=== PATIENT | female | born 1995 | race Caucasian/White ===

== ENCOUNTER 2016-07-24 13:37 | Outpatient (CLI) | payer BC ==
[~2016-07-24] VITALS: Ht 160 cm; Wt 83.7 kg
[2016-07-24 13:49] VITALS: BP 140/68; Ht 160 cm; Wt 83.7 kg
--- NOTE | 2016-07-24 14:41 | TRIAGE ---
OB Triage Datetime Report Generated by CPN: 07/24/2016 14:40 Datetime: 07/24/2016 14:26 Labor Evaluation Frequency: 1-5 Monitor Mode: External Duration (sec)2399: 30-60 Pattern: Normal: <= 5 Contractions in 10 Minutes Membrane Status: Intact Datetime: 07/24/2016 14:25 Vaginal Exam Dilatation (cms): 0.0 Effacement (%): 50 Station: -2 Exam By: Natalia SHELLEY Datetime: 07/24/2016 13:53 Stage of : OB Triage Assessment Type: Triage Maternal Assessment Level of Consciousness: Fully Conscious DTR's/Clonus: DTRs 2+; No Clonus Headache: Denies Blurred Vision: No Respiratory Effort: Unlabored; Regular Rhythm; Equal Expansion Breath Sounds, Left: Clear and Equal Breath Sounds, Right: Clear and Equal Nausea/Vomiting: Denies RUQ Epigastric Pain: Denies Lower Extremities Edema: None Degree: None Upper Extremities Edema: None Degree: None Facial Edema: None Temperature Route: Oral Fall Risk Assessment History of Falling: (0) No Secondary Diagnosis: (0) No Ambulatory Aid: (0) Bedrest/Nurse Assist IV Therapy: (0) No Gait: (0) Normal/Bedrest/Immobile Mental Status: (0) Oriented to Own Ability Fall Score: 0 Fall Risk Score Definition: No Risk: No action required Labor Evaluation Frequency: X1 Monitor Mode: External Duration (sec)2399: 50-60 Pattern: Normal: <= 5 Contractions in 10 Minutes Resting Tone [place]: Relaxed Heart Rate FHR Baseline Rate: 155 Monitor Mode: External US Variability: Moderate 6-25 bpm Category: Category I Pain Assessment Pain Scale: 6 Pain Presence: Intermittent Pain Type: Ache Pain Location: Back Pain Goal: 0 Pain Relief Measures: Comfort Measures Datetime: 07/24/2016 13:52 EGA: 38.5 Datetime: 07/24/2016 13:51 Time of Arrival: 07/24/2016 13:31 Arrived By: Ambulatory Arrived From: Home Chief Complaint: BACK PAIN Movement: Present Contractions: Irregular Rupture of Membranes: Denies Vaginal Bleeding: None Vaginal Discharge: Denies Recent Sexual Intercouse: Denies Abdominal Trauma: Not Applicable Patient Complaints: Back Pain Time Provider Notified: 07/24/2016 14:30 Provider Notified: DR. SHI Initial Plan: Cristino
--- NOTE | 2016-07-24 15:24 | PN ---
DATE: 07/24/2016 The patient is a 21-year-old 38-1/2 weeks with ___ uterine contractions. No vaginal bleeding. Vital signs are normal. Exam within normal limits. Os is closed. Category 1 tracing. ASSESSMENT: Uterine at 38-1/2 weeks. False labor. PLAN: Discharged home. Follow up in one week or p.r.n. Dictated By: ALTAGRACIA SHI MD /NTS Conf#: [id number] DID#: [id number]
== END 2016-07-24 14:52 | disposition home or self-care (01) ==
LOC: L-D 13:37 → OBT 13:37
PROVIDERS: ATTEND Obstetrics & Gynecology
DX: O47.1 False labor at or after 37 completed weeks of gestation (principal); Z3A.38 38 weeks gestation of pregnancy
CPT/HCPCS: G0463

== ENCOUNTER 2016-07-30 04:11 | Outpatient (CLI) | payer BC ==
[~2016-07-30] VITALS: Ht 160 cm; Wt 84.2 kg
[2016-07-30 04:19] VITALS: BP 133/67; PULSE 73; RESP 18; Ht 160 cm; Wt 84.2 kg
--- NOTE | 2016-07-30 05:23 | PN ---
Date/Time of Note Date/Time of Note DATE: 07/30/16 TIME: 05:20 OB Subjective Subjective Subjective 21 yo @ 39. 4 wks came w c/o ctx, now lessened OB Objective Objective Objective VS: 133/67, 73, 18, 98.2 Abdomen- gravid, n/t SVE- 1/40/-3 FHT- Cat I Concrete- irreg ctx Abdomen: WNL Cervical Dilatation: 1cm Effacement: 50% Station: -3 Membranes: Intact Accelerations: Accelerations Present Decelerations: No Decelerations Contractions on Admission: >10 Minutes Apart Intensity: Mild OB Assessment/Plan Other Assessment: 21 yo P0 @ 39.4 wks, r/o labor - reassuring status Other plan: d/c home labor precautions DARIAN MYERS MD Jul 30, 2016 05:23
--- NOTE | 2016-07-30 05:37 | TRIAGE ---
OB Triage Datetime Report Generated by CPN: 07/30/2016 05:37 Datetime: 07/30/2016 05:18 Stage of : OB Triage Datetime: 07/30/2016 05:15 Labor Evaluation Frequency: 3-8 Monitor Mode: External Duration (sec)2399: 60-140 Quality: Mild Resting Tone [place]: Relaxed Heart Rate FHR Baseline Rate: 135 Monitor Mode: External US Variability: Moderate 6-25 bpm Accelerations: 15X15 Decelerations: None Category: Category I Datetime: 07/30/2016 05:07 Stage of : OB Triage Datetime: 07/30/2016 04:52 Vaginal Exam Dilatation (cms): 1.0 Effacement (%): 40 Station: -3 Exam By: Cristino MEIER Vaginal Bleeding: None Cervix, Consistency: Firm Cervix, Position: Posterior Presentation 'A': Cephalic Datetime: 07/30/2016 04:23 Assessment Type: Triage Maternal Assessment Level of Consciousness: Fully Conscious DTR's/Clonus: DTRs 1+; No Clonus Headache: Denies Blurred Vision: No Respiratory Effort: Unlabored Breath Sounds, Left: Clear and Equal Breath Sounds, Right: Clear and Equal Nausea/Vomiting: Present (Annotations: 1 EPISODE OF VOMITING AT 0200) RUQ Epigastric Pain: Denies Lower Extremities Edema: Bilateral Lower Extremities Degree: 2+ Upper Extremities Edema: Bilateral Upper Extremities Degree: 1+ Facial Edema: None Fall Risk Assessment History of Falling: (0) No Secondary Diagnosis: (0) No Ambulatory Aid: (0) Bedrest/Nurse Assist IV Therapy: (0) No Gait: (0) Normal/Bedrest/Immobile Mental Status: (0) Oriented to Own Ability Fall Score: 0 Fall Risk Score Definition: No Risk: No action required Datetime: 07/30/2016 04:21 Time of Arrival: 07/30/2016 04:06 EGA: 39.4 Arrived By: Wheelchair Arrived From: Home Chief Complaint: UCs since 99 Movement: Present Contractions: Irregular Time Contractions Began: 07/30/2016 01:00 Contractions: q 15-20 min Rupture of Membranes: Denies Vaginal Discharge: Denies Recent Sexual Intercouse: Denies Abdominal Trauma: Not Applicable Patient Complaints: Contractions; Back Pain Initial Plan: VS, EFM, SVE Datetime: 07/30/2016 04:17 Monitor Mode: External Monitor Mode: External US Datetime: 07/24/2016 13:53 Fall Score: 0 Fall Risk Score Definition: No Risk: No action required Datetime: 07/24/2016 13:52 EGA: 38.5
== END 2016-07-30 05:32 | disposition home or self-care (01) ==
LOC: OBT 04:11 → L-D 04:12 → OBT 05:32
PROVIDERS: ATTEND Obstetrics & Gynecology
DX: O47.1 False labor at or after 37 completed weeks of gestation (principal); Z3A.39 39 weeks gestation of pregnancy
CPT/HCPCS: G0463

== ENCOUNTER 2016-08-01 00:20 | Inpatient (IN) | payer BC ==
[~2016-08-01] VITALS: Ht 160 cm; Wt 83.7 kg
[2016-08-01 00:43] VITALS: BP 139/70; PULSE 72; Ht 160 cm; Wt 83.7 kg
[2016-08-01] MEDS ORDERED: METHYLERGONOVINE 0.2 MG INJ IM PRN ×4 (01:00→17:00)
[2016-08-01] MEDS ORDERED: OXYTOCIN 30 UNITS/LR 500 ML IV SCH ×3 (01:00→03:30)
[2016-08-01] MEDS ORDERED: IBUPROFEN 600 MG TAB PO PRN (01:00)
[2016-08-01] MEDS ORDERED: LACTATED RINGER'S 1,000 ML IV PRN (01:00)
[2016-08-01] MEDS ORDERED: OXYTOCIN 30 UNITS/LR 500 ML IV PRN ×4 (01:00→17:00)
[2016-08-01] MEDS ORDERED: BUTORPHANOL 2 MG INJ IV PRN (01:00)
[2016-08-01] MEDS ORDERED: CARBOPROST 250 MCG INJ IM PRN ×4 (01:00→17:00)
[2016-08-01] MEDS ORDERED: ACETAMINOPHEN/CODEINE #3 TAB PO PRN ×3 (01:00→17:00)
[2016-08-01] MEDS ORDERED: LIDOCAINE 1% (MPF) 30 ML INJ INJ PRN (01:00)
[2016-08-01] MEDS ORDERED: AMPICILLIN 2 GM/NS (PMX) 100 ML IV ONE (01:00)
[2016-08-01] MEDS ORDERED: MISOPROSTOL 200 MCG TAB PR PRN ×4 (01:00→17:00)
[2016-08-01] MEDS: LACTATED RINGER'S 1,000 ML IV SCH ×4 (01:15→11:10)
--- NOTE | 2016-08-01 01:29 | TRIAGE ---
OB Triage Datetime Report Generated by CPN: 08/01/2016 01:28 Datetime: 08/01/2016 00:40 Assessment Type: Triage Maternal Assessment Level of Consciousness: Fully Conscious Headache: Denies Blurred Vision: No Respiratory Effort: Unlabored; Regular Rhythm; Equal Expansion Nausea/Vomiting: Denies RUQ Epigastric Pain: Denies Facial Edema: None Fall Risk Assessment History of Falling: (0) No Secondary Diagnosis: (0) No Ambulatory Aid: (0) Bedrest/Nurse Assist IV Therapy: (0) No Gait: (0) Normal/Bedrest/Immobile Mental Status: (0) Oriented to Own Ability Fall Score: 0 Fall Risk Score Definition: No Risk: No action required Datetime: 08/01/2016 00:39 Time of Arrival: 08/01/2016 00:19 EGA: 39.6 Arrived By: Wheelchair Arrived From: Home Chief Complaint: UC'S SINCE 2199 Movement: Present Contractions: Regular Time Contractions Began: 07/31/2016 22:00 Contractions: Q2M Rupture of Membranes: Unsure Vaginal Discharge: Present Recent Sexual Intercouse: Denies Abdominal Trauma: Not Applicable Patient Complaints: Contractions Time Provider Notified: 08/01/2016 00:41 Provider Notified: ARDALAN Initial Plan: EFM,SVE, CALL OB Datetime: 08/01/2016 00:31 Vaginal Exam Dilatation (cms): 4.5 Effacement (%): 80 Station: -1 Exam By: HILARY Membrane Status: Intact Vaginal Bleeding: Small Cervix, Consistency: Moderate Cervix, Position: Midposition Presentation 'A': Cephalic Datetime: 07/30/2016 05:30 Vaginal Bleeding: None Vaginal Discharge: Denies Recent Sexual Intercouse: Denies Datetime: 07/30/2016 04:23 Fall Score: 0 Fall Risk Score Definition: No Risk: No action required Datetime: 07/30/2016 04:21 EGA: 39.4 Datetime: 07/24/2016 13:53 Fall Score: 0 Fall Risk Score Definition: No Risk: No action required Datetime: 07/24/2016 13:52 EGA: 38.5
[2016-08-01 01:47] LABS: ADD SCAN DIFF NO
[2016-08-01 01:48] LABS: BASOPHILS % 0.2 % (0.0-2.0); EOSINOPHILS % 0.2 % (0.0-7.0); HEMATOCRIT 31.9 % (37.0-47.0); HEMOGLOBIN 9.9 g/dl (12.0-16.0); LYMPHOCYTES # 1.5 10^3/ul (0.8-2.9); LYMPHOCYTES % 9.5 % (15.0-51.0); MEAN CORPUSCULAR HEMOGLOBIN 24.1 pg (29.0-33.0); MEAN CORPUSCULAR VOLUME 77.8 fl (82.0-101.0); MEAN PLATELET VOLUME 12.1 fl (7.4-10.4); MONOCYTE # 1.3 10^3/ul (0.3-0.9); MONOCYTES % 8.2 % (0.0-11.0); NEUTROPHIL # 12.7 10^3/ul (1.6-7.5); NEUTROPHILS % 81.3 % (39.0-77.0); PLATELET COUNT 252 10^3/UL (140-415); RED CELL DISTRIBUTION WIDTH 14.6 % (11.5-14.5); WHITE BLOOD COUNT 15.6 10^3/ul (4.8-10.8)
[2016-08-01 01:59] LABS: INR 0.88; PROTIME 11.9 Sec (12.2-14.2); PT RATIO 0.9
[2016-08-01 02:00] LABS: PARTIAL THROMBOPLASTIN TIME 27.4 Sec (25.0-35.0)
[2016-08-01] MEDS ORDERED: FENTAnyl 2MCG/ML-ROPIV 0.2% 100 ML ONE ×2 (02:47→10:06)
[2016-08-01 04:07] LABS: BARBITURATES Negative (NEGATIVE); BENZODIAZEPINES Negative (NEGATIVE); CANNABINOIDS Negative (NEGATIVE); COCAINE Negative (NEGATIVE); OPIATES Negative (NEGATIVE)
[2016-08-01] MEDS ORDERED: AMPICILLIN 1 GM/NS (PMX) 50 ML IV SCH (05:00)
[2016-08-01] MEDS ORDERED: NALOXONE (0.4 MG/ML) INJ IV PRN (10:30)
[2016-08-01] MEDS ORDERED: FENTAnyl 2MCG/ML-ROPIV 0.2% 100 ML BAG EPI SCH (10:30)
[2016-08-01] MEDS ORDERED: EPHEDrine SULFATE 50 MG/5 ML SYG IV PRN (10:30)
[2016-08-01] MEDS ORDERED: ONDANSETRON 4 MG INJ IV PRN (10:30)
[2016-08-01] MEDS ORDERED: PRENAT PO (11:18)
--- NOTE | 2016-08-01 13:42 | LDN ---
Date/Time of Note Date/Time of Note DATE: 08/01/16 TIME: 13:39 Delivery Summary Normal spontaneous vaginal delivery of a baby boy from ANA position shoulders delivered without any difficulty rest of the baby's body followed placenta spontaneous expulsion inspected complete patient sustained first-degree perineal laceration repair with 2-0 chromic catgut and 4-0 chromic catgut estimated blood loss 250 cc Placenta Delivered: Spontaneously Meconium: Light Episiotomy?: No Perineal laceration: 1 Laceration repair: First-degree perineal laceration repair with 2-0 chromic catgut and 4-0 chromic catgut Anesthesia type: Epidural Estimated blood loss: 250 Sponge & Needle done & correct: Yes All needle counts correct: Yes Any foreign bodies felt in the: No Problems: Delivery Information Sex Sex: male Apgars 1 Minute: 9 5 Minute: 9 Suctioning Nose & mouth suctioned at sarthak: Yes Delee suction performed: No Umbilical Cord Umbilical cord with: 3 Vessels Cord presentations: nuchal cord Cord Blood was obtained: Yes EDUARDO VALDEZ MD Aug 01, 2016 13:42
--- NOTE | 2016-08-01 13:47 | HP ---
Date/Time of Note Date/Time of Note DATE: 08/01/16 TIME: 13:43 OB - History Hx of Present Free Text/Dictation 21 years old 39 weeks and 3 days admitted in active labor pelvic examination on admission cervical dilatation 6 cm 100% effaced vertex presentation at -1 station patient transferred from triage to labor and delivery room. Estimated Due Date: Aug 02, 2016 : 1 Para: 0 Care: Good Care Obstetrical Complications: None Medical Complications: None Past Family/Social History * Past Medical, Surgical, Family and Obstetric Histories reviewed from chart. Rubella: immune RPR/VDRL: Negative GBS Status: Negative HBsAG: Negative OB Admission Exam Vital Signs Vital Signs Vital Signs Date Time Temp Pulse Resp B/P Pulse Ox O2 Delivery O2 Flow Rate FiO2 08/01/16 00:43 98.1 72 139/70 Room Air Physical Exam HEENT: WNL Heart: Rhythm Normal Lungs: Clear, Equal Extremities: Normal Reflexes: Normal Cervical Dilatation: 6cm Effacement: 100% Station: -1 Membranes: Intact Heart Rate: 130's Decelerations: No Decelerations Varibility: Moderate Contractions on Admission: < 5 Minutes Apart Intensity: Moderate Last 72 hours Lab Results CBC & BMP 08/01/16 01:10 EDUARDO VALDEZ MD Aug 01, 2016 13:47
[2016-08-01 15:00] VITALS: BP 108/56; PULSE 96; RESP 18
[2016-08-01] MEDS ORDERED: LACTATED RINGER'S 1,000 ML IV* SCH ×2 (15:22)
[2016-08-01] MEDS ORDERED: BENZOCAINE 20% 56 ML SPRAY TOP PRN (17:00)
[2016-08-01] MEDS ORDERED: WITCH HAZEL/GLYCERIN PAD PR PRN (17:00)
[2016-08-01] MEDS ORDERED: LANOLIN 7 GM TUBE TOP PRN (17:00)
[2016-08-01] MEDS ORDERED: ACETAMINOPHEN 325 MG TAB PO PRN (17:00)
[2016-08-01] MEDS: IBUPROFEN 600 MG TAB PO SCH (17:25)
[2016-08-01 20:00] VITALS: BP 106/64; PULSE 87; RESP 18
[2016-08-01] MEDS: SENNA/DOCUSATE NA (8.6MG/50MG) TAB PO SCH (21:18)
[2016-08-02] MEDS: IBUPROFEN 600 MG TAB PO SCH ×5 (00:06→23:55)
[2016-08-02 04:15] VITALS: BP 106/53; PULSE 86; RESP 18
[2016-08-02 08:24] LABS: ADD SCAN DIFF NO
[2016-08-02 08:31] LABS: ABNORMAL IP MESSAGE 1; BASOPHIL # 0.1 10^3/ul (0.0-0.1); BASOPHILS % 0.3 % (0.0-2.0); EOSINOPHILS # 0.2 10^3/ul (0.0-0.5); HEMATOCRIT 23.6 % (37.0-47.0); HEMOGLOBIN 7.4 g/dl (12.0-16.0); LYMPHOCYTES % 11.9 % (15.0-51.0); MEAN CORPUSCULAR HEMOGLOBIN 24.5 pg (29.0-33.0); MEAN CORPUSCULAR HGB CONC 31.4 g/dl (32.0-37.0); MEAN CORPUSCULAR VOLUME 78.1 fl (82.0-101.0); MEAN PLATELET VOLUME 11.5 fl (7.4-10.4); MONOCYTE # 1.6 10^3/ul (0.3-0.9); MONOCYTES % 9.2 % (0.0-11.0); NEUTROPHIL # 13.2 10^3/ul (1.6-7.5); NEUTROPHILS % 77.1 % (39.0-77.0); PLATELET COUNT 195 10^3/UL (140-415); RED BLOOD COUNT 3.02 10^6/ul (4.20-5.40); RED CELL DISTRIBUTION WIDTH 15.1 % (11.5-14.5); WHITE BLOOD COUNT 17.1 10^3/ul (4.8-10.8)
[2016-08-02 08:45] VITALS: BP 101/62; PULSE 83; RESP 18
[2016-08-02] MEDS ORDERED: INFLUENZA VIRUS VACCINE 0.5 ML (DISPENSING) IM* ONE (09:00)
--- NOTE | 2016-08-02 09:42 | PN ---
Date/Time of Note Date/Time of Note DATE: 08/02/16 TIME: 09:37 OB Subjective Subjective Subjective day 1 Vital signs as stated with patient is orthostatic feels dizzy when walking hemoglobin 7.4 hematocrit 17.1 abdomen soft uterus firm lochia moderate extremity normal recommended transfusion of 2 units of packed cells pros and cons regarding the transfusion was discussed with the patient including blood reactions and. other complications may arise from transfusion EDUARDO VALDEZ MD Aug 02, 2016 09:42
[2016-08-02] MEDS: SENNA/DOCUSATE NA (8.6MG/50MG) TAB PO SCH ×2 (11:54→20:32)
[2016-08-02 12:23] VITALS: BP 110/54; PULSE 80; RESP 18
[2016-08-02 16:30] VITALS: BP 115/69; RESP 18
[2016-08-02 19:45] VITALS: BP 106/68; PULSE 100; RESP 18
[2016-08-03 03:40] VITALS: BP 107/63; PULSE 90; RESP 16
[2016-08-03] MEDS: IBUPROFEN 600 MG TAB PO SCH ×2 (05:53→12:01)
[2016-08-03 08:30] VITALS: BP 117/59; PULSE 88; RESP 19
[2016-08-03] MEDS ORDERED: DIPHTH/TET/ACEL PERTUSS (ADULT) 0.5 ML VIAL IM* ONE (09:00)
[2016-08-03] MEDS: SENNA/DOCUSATE NA (8.6MG/50MG) TAB PO SCH (09:56)
--- NOTE | 2016-08-03 13:59 | PD.PPDC ---
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
--- NOTE | 2016-08-03 14:02 | DS ---
Date/Time of Note Date/Time of Note DATE: 08/03/16 TIME: 14:01 Obstetrical Discharge Record Final Diagnosis Final Diagnosis: Term delivered Vaginal Delivery Obstetrical Delivery: Spontaneous Condition on Discharge Physical Assessment Last Vitals: day 2 afebrile abdomen soft uterus firm lochia normal extremity normal cox discharged home with follow-up instructions to be seen at the clinic 2 weeks Voiding: Yes Bowel Movement: Yes Fundus: Firm Patient Condition: Good EDUARDO VALDEZ MD Aug 03, 2016 14:02
== END 2016-08-03 16:33 | disposition home or self-care (01) | DRG 775 ==
LOC: OBT 00:20 → L-D 00:26 → OBT 00:45 → L-D 00:45 → PP1 15:26
PROVIDERS: ADMIT Obstetrics & Gynecology; ATTEND Obstetrics & Gynecology
PROC: 10E0XZZ Delivery of Products of Conception, External Approach (ICD-10-PCS; principal; 2016-08-01)
PROC: 0HQ9XZZ Repair Perineum Skin, External Approach (ICD-10-PCS; 2016-08-01)
PROC: 3E00X4Z Introduction of Serum, Toxoid and Vaccine into Skin and Mucous Membranes, External Approach (ICD-10-PCS; 2016-08-03)
DX: O69.81X0 Labor and delivery complicated by cord around neck, without compression, not applicable or unspecified (principal); E66.9 Obesity, unspecified; O99.214 Obesity complicating childbirth; Z68.32 Body mass index [BMI] 32.0-32.9, adult; Z23 Encounter for immunization; O70.0 First degree perineal laceration during delivery; Z3A.39 39 weeks gestation of pregnancy; Z37.0 Single live birth
CPT/HCPCS: 36415; 62319; 80307; 85025; 85610; 85730; 86592; 86900; 86901; 87340; 90686; 90715; 99464; G0463; J2590; J3010; J7120

== ENCOUNTER 2019-01-17 10:48 | Inpatient (IN) | payer BC ==
[~2019-01-17] VITALS: Ht 160 cm; Wt 82.9 kg
[~2019-01-17 10:48] MED LIST: DOCU-144 PO; FER325 PO; IBUP-1542 PO; PRENAT PO
[2019-01-17 11:31] VITALS: BP 114/64; PULSE 96
[2019-01-17 11:32] VITALS: Ht 160 cm; Wt 82.9 kg
[2019-01-17] MEDS ORDERED: CARBOPROST 250 MCG INJ IM PRN (14:30)
[2019-01-17] MEDS ORDERED: METHYLERGONOVINE 0.2 MG INJ IM PRN (14:30)
[2019-01-17] MEDS ORDERED: LIDOCAINE 1% (MPF) 30 ML INJ INJ PRN (14:30)
[2019-01-17] MEDS ORDERED: OXYTOCIN 30 UNITS/LR 500 ML IV PRN (14:30)
[2019-01-17] MEDS ORDERED: MISOPROSTOL 200 MCG TAB PR PRN (14:30)
[2019-01-17] MEDS ORDERED: BUTORPHANOL 2 MG INJ IV PRN (14:30)
[2019-01-17] MEDS ORDERED: IBUPROFEN 600 MG TAB PO PRN (14:30)
[2019-01-17] MEDS ORDERED: OXYTOCIN 30 UNITS/LR 500 ML IV SCH ×3 (14:30)
[2019-01-17] MEDS: LACTATED RINGER'S 1,000 ML IV SCH (17:09)
[2019-01-18] MEDS: LACTATED RINGER'S 1,000 ML IV SCH ×4 (01:27→22:09)
[2019-01-18] MEDS ORDERED: FENTAnyl 2MCG/ML-ROPIV 0.2% 100 ML ONE (08:10)
[2019-01-18] MEDS ORDERED: ONDANSETRON 4 MG INJ IV PRN ×2 (08:30→15:30)
[2019-01-18] MEDS ORDERED: FENTAnyl 2MCG/ML-ROPIV 0.2% 100 ML BAG EPI SCH (08:30)
[2019-01-18] MEDS ORDERED: NALOXONE (0.4 MG/ML) INJ IV PRN (08:30)
[2019-01-18] MEDS ORDERED: NALBUPHINE HCL (10 MG/1 ML) INJ IV PRN (08:30)
[2019-01-18] MEDS ORDERED: DIPHENHYDRAMINE 50 MG INJ IV PRN (08:30)
[2019-01-18] MEDS ORDERED: AMPICILLIN 2 GM/NS (PMX) 100 ML IV STA (09:16)
[2019-01-18] MEDS ORDERED: AMPICILLIN 2 GM/NS (PMX) 100 ML ONE (09:22)
[2019-01-18] MEDS ORDERED: AMPICILLIN 1 GM/NS (PMX) 50 ML IV SCH (13:30)
[2019-01-18] MEDS ORDERED: GENTAMICIN 80 MG/NS (PMX) 50 ML IVPB STA (13:45)
[2019-01-18] MEDS ORDERED: OXYTOCIN 30 UNITS/LR 500 ML IV SCH (15:03)
[2019-01-18] MEDS ORDERED: MISOPROSTOL 200 MCG TAB PR PRN (15:30)
[2019-01-18] MEDS ORDERED: OXYTOCIN 30 UNITS/LR 500 ML IV PRN (15:30)
[2019-01-18] MEDS ORDERED: WITCH HAZEL/GLYCERIN PAD PR PRN (15:30)
[2019-01-18] MEDS ORDERED: HYDROCODONE/APAP (5/325) TAB PO PRN (15:30)
[2019-01-18] MEDS ORDERED: LANOLIN HPA 1 PKT TOP PRN (15:30)
[2019-01-18] MEDS ORDERED: NACL 0.9% 3 ML SYG IV SCH (15:30)
[2019-01-18] MEDS ORDERED: DIPHENHYDRAMINE 25 MG CAP PO PRN (15:30)
[2019-01-18] MEDS ORDERED: CARBOPROST 250 MCG INJ IM PRN (15:30)
[2019-01-18] MEDS ORDERED: ZOLPIDEM 5 MG TAB PO PRN (15:30)
[2019-01-18] MEDS: PRENATAL VITAMIN PO SCH (16:52)
[2019-01-18 18:00] VITALS: BP 109/53; PULSE 86
[2019-01-18] MEDS: IBUPROFEN 600 MG TAB PO SCH (18:00)
[2019-01-18] MEDS ORDERED: BENZOCAINE 20% 56 ML SPRAY TOP PRN (18:30)
[2019-01-18 20:00] VITALS: BP 107/51; PULSE 64; RESP 16
[2019-01-18] MEDS: CLINDAMYCIN 900 MG (PMX) 50 ML IVPB SCH (21:57)
[2019-01-18] MEDS: SENNA/DOCUSATE NA (8.6MG/50MG) TAB PO SCH (22:07)
[2019-01-18] MEDS: GENTAMICIN 80 MG/NS (PMX) 50 ML IVPB SCH (22:09)
[2019-01-19] MEDS: IBUPROFEN 600 MG TAB PO SCH ×4 (01:26→18:25)
[2019-01-19] MEDS: LACTATED RINGER'S 1,000 ML IV SCH (01:29)
[2019-01-19 04:00] VITALS: BP 97/56; PULSE 71; RESP 20
[2019-01-19] MEDS: CLINDAMYCIN 900 MG (PMX) 50 ML IVPB SCH ×2 (05:10→14:01)
[2019-01-19] MEDS: GENTAMICIN 80 MG/NS (PMX) 50 ML IVPB SCH ×2 (05:35→14:07)
[2019-01-19 08:00] VITALS: BP 100/45; PULSE 69; RESP 18
[2019-01-19] MEDS: SENNA/DOCUSATE NA (8.6MG/50MG) TAB PO SCH ×2 (08:33→22:15)
[2019-01-19] MEDS: PRENATAL VITAMIN PO SCH (08:33)
[2019-01-19 16:00] VITALS: BP 101/52; PULSE 77; RESP 18
[2019-01-19 20:00] VITALS: BP 95/54; PULSE 73; RESP 20
[2019-01-20] MEDS: IBUPROFEN 600 MG TAB PO SCH ×3 (00:53→12:12)
[2019-01-20 04:00] VITALS: BP 100/51; PULSE 70; RESP 18
[2019-01-20 08:00] VITALS: BP 103/51; PULSE 72; RESP 16
[2019-01-20 08:35] VITALS: BP 107/53; PULSE 66
[2019-01-20 08:36] VITALS: BP 111/58; PULSE 82
[2019-01-20 08:37] VITALS: BP 102/54; PULSE 91
[2019-01-20] MEDS ORDERED: MEASLES,MUMPS,RUBELLA VACCINE INJ SC* ONE (09:00)
[2019-01-20] MEDS ORDERED: DIPHTH/TET/ACEL PERTUSS (ADULT) 0.5 ML VIAL IM* ONE (09:00)
[2019-01-20] MEDS ORDERED: FERROUS SULFATE (EC) 325 MG TAB PO SCH (09:00)
[2019-01-20] MEDS: PRENATAL VITAMIN PO SCH (09:00)
[2019-01-20] MEDS ORDERED: VARICELLA VACCINE LIVE/PF 1,350 UNIT/0.5 ML ML SC* ONE (09:00)
[2019-01-20] MEDS: SENNA/DOCUSATE NA (8.6MG/50MG) TAB PO SCH (09:01)
== END 2019-01-20 13:50 | disposition home or self-care (01) | DRG 807 ==
LOC: OBT 10:48 → L-D 10:48 → OBT 14:10 → L-D 14:41 → PP1 01-18 18:02
PROVIDERS: ADMIT Obstetrics & Gynecology; ATTEND Obstetrics & Gynecology
PROC: 10E0XZZ Delivery of Products of Conception, External Approach (ICD-10-PCS; principal; 2019-01-18)
PROC: 0KQM0ZZ Repair Perineum Muscle, Open Approach (ICD-10-PCS; 2019-01-18)
DX: O70.1 Second degree perineal laceration during delivery (principal); Z37.0 Single live birth; Z3A.40 40 weeks gestation of pregnancy
CPT/HCPCS: 62322; 76818; 84112; 85014; 85018; 85025; 85610; 85730; 86592; 86850; 86900; 86901; 87340; 90715; 90716; 99464; G0463; J0290; J0595; J1580; J2590; J3010; J7120